=== PATIENT | female | born 1985 | race Caucasian/White ===

== ENCOUNTER 2021-04-25 21:02 | Inpatient (IN) | payer OTHER ==
[~2021-04-25] VITALS: Ht 160 cm; Wt 69.1 kg
--- NOTE | 2021-04-25 21:15 | NUR ---
BIBA FOR SYNCOPAL EVENT. PT STATES SHE HASN'T BEEN FEELING WELL FOR 1 WEEK. PT HAS REBOLLEDO. PT WAS WITH FRIEND GOING TO WHEN SHE HAS SYNCOPAL EVENT IN PARKING LOT. PER FRIEND PT HAD SEIZURE LIKE ACTIVITY. PT HAS NO HX OF SZ AND HAD NO LOSS OF BLADDER/BOWEL AND NO POSTICTAL STATE. PT A&0X4 AND ANSWERING QUESTIONS APPROPIATELY.
[2021-04-25] MEDS ORDERED: SODIUM CHLORIDE 0.9% 1,000ML IVBOLUS ONE (21:30)
[2021-04-25] MEDS ORDERED: KETOROLAC 30 MG/1 ML IVPush ONE (21:30)
[2021-04-25] MEDS ORDERED: ONDANSETRON 2MG/ML, 2ML IVPush ONE (21:30)
[2021-04-25] MEDS ORDERED: ONDANSETRON 2MG/ML, 2ML ONE (21:52)
[2021-04-25] MEDS ORDERED: KETOROLAC 30 MG/1 ML ONE (21:52)
[2021-04-25 21:58] LABS: BASOPHILS % (AUTO) 1 % (0-1); EOSINOPHILS % (AUTO) 1 % (1-7); LYMPHOCYTES % (AUTO) 7 % (22-44); MEAN CORPUSCULAR HEMOGLOBIN 27.1 pg (27.0-34.8); MEAN CORPUSCULAR HGB CONC 32.5 g/dL (32.4-35.8); MEAN PLATELET VOLUME 8.9 fL (7.4-10.4); MONOCYTES % (AUTO) 6 % (2-9); NEUTROPHILS % (AUTO) 86 % (42-75); PLATELET COUNT 447 x10^3/uL (130-400); RED BLOOD COUNT 4.48 x10^6/uL (3.82-5.3); RED CELL DISTRIBUTION WIDTH 17.5 % (9.6-15.2)
--- NOTE | 2021-04-25 23:30 | NUR ---
lab called, note about needing to redraw labs. lab head will page tech here in ER and ask.
[2021-04-26 00:28] LABS: ANION GAP 24 mmol/L (5-15); CHLORIDE 98 mmol/L (98-107)
[2021-04-26 00:29] LABS: CALCIUM 9.1 mg/dL (8.5-10.1)
[2021-04-26 00:30] LABS: ALBUMIN 3.1 g/dL (3.4-5.0)
[2021-04-26 00:53] LABS: ALANINE AMINOTRANSFERASE 183 U/L (12-78); ALBUMIN 3.1 g/dL (3.4-5.0); BILIRUBIN, DIRECT 0.3 mg/dL (0.1-0.2)
[2021-04-26] MEDS ORDERED: SODIUM CHLORIDE 0.9% 1,000ML IVBOLUS ONE (01:00)
[2021-04-26 01:03] LABS: ALKALINE PHOSPHATASE 147 U/L (45-117); BILIRUBIN,INDIRECT 0.2 mg/dL (0.0-2.0); BILIRUBIN,TOTAL 0.5 mg/dL (0.2-1.0); TOTAL PROTEIN 7.1 g/dL (6.4-8.2); TROPONIN I 0.026 ng/mL (0.000-0.045)
--- NOTE | 2021-04-26 01:07 | NUR ---
PT GIVEN BLANKET. UNDERSTANDS POC.
--- NOTE | 2021-04-26 02:07 | NUR ---
REPORT GIVEN TO SONIA BARRAZA
[2021-04-26 02:30] VITALS: BP 146/84
[2021-04-26] MEDS ORDERED: LABETALOL 5MG/ML, 20ML IVPush PRN (04:00)
[2021-04-26] MEDS ORDERED: HYDROmorphone 2 MG/ML, 1ML IVPush PRN (04:00)
[2021-04-26] MEDS ORDERED: ONDANSETRON 2MG/ML, 2ML IVPush PRN (04:00)
[2021-04-26] MEDS ORDERED: POLYETHYLENE GLYCOL 17 GM PACKET PO PRN (04:00)
[2021-04-26] MEDS: HEPARIN 5,000 UNITS/ML, 1ML SQ SCH ×3 (04:32→19:51)
[2021-04-26 07:08] VITALS: BP 135/86
[2021-04-26] MEDS ORDERED: PHARMACY MAY ADJ FOR RENAL FX MC PRN (07:30)
[2021-04-26 07:57] LABS: BASOPHILS % (AUTO) 1 % (0-1); EOSINOPHILS % (AUTO) 1 % (1-7); LYMPHOCYTES % (AUTO) 11 % (22-44); MEAN CORPUSCULAR HEMOGLOBIN 27.1 pg (27.0-34.8); MEAN CORPUSCULAR HGB CONC 32.2 g/dL (32.4-35.8); MEAN PLATELET VOLUME 8.8 fL (7.4-10.4); MONOCYTES % (AUTO) 7 % (2-9); NEUTROPHILS % (AUTO) 81 % (42-75); PLATELET COUNT 401 x10^3/uL (130-400)
[2021-04-26 08:02] LABS: ANION GAP 21 mmol/L (5-15); CALCIUM 8.5 mg/dL (8.5-10.1); CHLORIDE 102 mmol/L (98-107)
[2021-04-26] MEDS: SODIUM BICARBONATE 8.4% 150 MEQ in DEXTROSE 5% 1,000 ML IV SCH ×2 (08:39→23:44)
[2021-04-26] MEDS: BUTALB/APAP/CAFFEINE 50MG/325MG/40MG PO PRN ×3 (09:24→19:51)
[2021-04-26 09:53] LABS: MICROSCOPIC INDICATED
[2021-04-26] MEDS ORDERED: AMLODIPINE 5 MG TABLET PO ONE (11:30)
[2021-04-26 12:21] VITALS: BP 157/94
[2021-04-26 16:26] LABS: ANA SCREEN NEGATIVE (Negative)
[2021-04-26 18:33] VITALS: BP 141/88
[2021-04-26] MEDS: MELATONIN 5 MG TABLET PO PRN (22:38)
[2021-04-26 23:47] VITALS: BP 133/76
[2021-04-27] MEDS: HEPARIN 5,000 UNITS/ML, 1ML SQ SCH (03:21)
[2021-04-27 06:29] VITALS: BP 129/84
[2021-04-27 07:48] LABS: BASOPHILS % (AUTO) 1 % (0-1); EOSINOPHILS % (AUTO) 2 % (1-7); LYMPHOCYTES % (AUTO) 14 % (22-44); MEAN CORPUSCULAR HGB CONC 34.6 g/dL (32.4-35.8); MEAN PLATELET VOLUME 8.6 fL (7.4-10.4); MONOCYTES % (AUTO) 11 % (2-9); NEUTROPHILS % (AUTO) 73 % (42-75); PLATELET COUNT 381 x10^3/uL (130-400); RED BLOOD COUNT 3.65 x10^6/uL (3.82-5.3); RED CELL DISTRIBUTION WIDTH 17.7 % (9.6-15.2)
[2021-04-27 07:59] LABS: ANION GAP 14 mmol/L (5-15); CALCIUM 8.2 mg/dL (8.5-10.1); CHLORIDE 94 mmol/L (98-107)
[2021-04-27 08:00] LABS: INTERNATIONAL NORMALIZED RATIO 1.04 (0.93-1.1); PROTHROMBIN TIME 11.1 Seconds (9.6-11.5)
[2021-04-27 12:47] VITALS: BP 138/88
[2021-04-27] MEDS ORDERED: MIDAZOLAM 1 MG/ML, 5ML ONE (13:00)
[2021-04-27] MEDS ORDERED: FENTANYL PF 100 MCG/2ML ONE (13:00)
[2021-04-27] MEDS ORDERED: NALOXONE 1 MG/ML, 2ML ONE (13:01)
[2021-04-27] MEDS ORDERED: FLUMAZENIL 0.1 MG/1 ML, 5ML ONE (13:01)
[2021-04-27] MEDS: AMLODIPINE 5 MG TABLET PO SCH (17:30)
[2021-04-27] MEDS: LACTATED RINGERS 1,000 ML IV SCH (17:31)
[2021-04-27 20:21] VITALS: BP 137/88
[2021-04-27] MEDS: MELATONIN 5 MG TABLET PO PRN (20:34)
[2021-04-27] MEDS: BUTALB/APAP/CAFFEINE 50MG/325MG/40MG PO PRN (20:34)
[2021-04-28 03:29] VITALS: BP 139/87
[2021-04-28] MEDS: LACTATED RINGERS 1,000 ML IV SCH ×2 (03:35→17:23)
[2021-04-28 06:34] LABS: ALANINE AMINOTRANSFERASE 105 U/L (12-78); ALBUMIN 2.6 g/dL (3.4-5.0); ANION GAP 14 mmol/L (5-15); CALCIUM 8.7 mg/dL (8.5-10.1); CHLORIDE 95 mmol/L (98-107); CREATININE 8.54 mg/dL (0.55-1.02)
[2021-04-28 06:36] LABS: ALKALINE PHOSPHATASE 113 U/L (45-117); BILIRUBIN,TOTAL 0.6 mg/dL (0.2-1.0); TOTAL PROTEIN 6.1 g/dL (6.4-8.2)
[2021-04-28 06:47] LABS: BASOPHILS % (AUTO) 0 % (0-1); EOSINOPHILS % (AUTO) 0 % (1-7); LYMPHOCYTES % (AUTO) 4 % (22-44); MEAN CORPUSCULAR HEMOGLOBIN 27.5 pg (27.0-34.8); MEAN CORPUSCULAR HGB CONC 33.7 g/dL (32.4-35.8); MONOCYTES % (AUTO) 1 % (2-9); NEUTROPHILS % (AUTO) 95 % (42-75); PLATELET COUNT 383 x10^3/uL (130-400); RED BLOOD COUNT 3.87 x10^6/uL (3.82-5.3)
[2021-04-28 06:57] VITALS: BP 146/88
[2021-04-28] MEDS: AMLODIPINE 5 MG TABLET PO SCH (08:40)
[2021-04-28] MEDS: BUTALB/APAP/CAFFEINE 50MG/325MG/40MG PO PRN ×2 (08:51→16:48)
[2021-04-28 12:19] VITALS: BP 141/95
[2021-04-28] MEDS: HEPARIN 5,000 UNITS/ML, 1ML SQ SCH ×2 (12:47→21:15)
[2021-04-28 16:40] VITALS: BP 130/90
[2021-04-28 20:04] VITALS: BP 133/89
[2021-04-28] MEDS: MELATONIN 5 MG TABLET PO PRN (21:15)
[2021-04-29 03:31] VITALS: BP 123/82
[2021-04-29] MEDS: LACTATED RINGERS 1,000 ML IV SCH ×2 (03:31→16:00)
[2021-04-29 05:28] LABS: ALBUMIN 3.1 g/dL (3.4-5.0); ANION GAP 9 mmol/L (5-15); CALCIUM 8.8 mg/dL (8.5-10.1); CHLORIDE 104 mmol/L (98-107); CREATININE 5.59 mg/dL (0.55-1.02)
[2021-04-29] MEDS: HEPARIN 5,000 UNITS/ML, 1ML SQ SCH (05:38)
[2021-04-29 08:14] VITALS: BP 149/95
[2021-04-29] MEDS: AMLODIPINE 5 MG TABLET PO SCH (08:16)
[2021-04-29] MEDS: AMLODIPINE 10 MG TAB PO SCH (09:00)
[2021-04-29] MEDS: BUTALB/APAP/CAFFEINE 50MG/325MG/40MG PO PRN ×2 (13:42→21:56)
[2021-04-29 14:25] VITALS: BP 119/77
[2021-04-29 21:43] VITALS: BP 117/71
[2021-04-30 01:25] VITALS: BP 123/80
[2021-04-30] MEDS: LACTATED RINGERS 1,000 ML IV SCH ×2 (05:04→15:38)
[2021-04-30 05:45] LABS: ANION GAP 8 mmol/L (5-15); CALCIUM 8.9 mg/dL (8.5-10.1); CHLORIDE 106 mmol/L (98-107)
[2021-04-30 07:03] VITALS: BP 137/89
[2021-04-30] MEDS: AMLODIPINE 10 MG TAB PO SCH (07:50)
[2021-04-30] MEDS: BUTALB/APAP/CAFFEINE 50MG/325MG/40MG PO PRN (07:50)
[2021-04-30] MEDS ORDERED: NALOXONE 1 MG/ML, 2ML ONE (09:44)
[2021-04-30] MEDS ORDERED: FLUMAZENIL 0.1 MG/1 ML, 5ML ONE (09:44)
[2021-04-30] MEDS ORDERED: MIDAZOLAM 1 MG/ML, 5ML ONE (09:44)
[2021-04-30] MEDS ORDERED: FENTANYL PF 100 MCG/2ML ONE (09:44)
[2021-04-30 10:32] VITALS: BP 126/86
[2021-04-30 13:17] VITALS: BP 119/78
[2021-04-30 17:11] LABS: MICROSCOPIC INDICATED
[2021-04-30 17:18] LABS: CHLORIDE,URINE RANDOM 59 mmol/L; POTASSIUM,URINE RANDOM 33 mmol/L; SODIUM,URINE RANDOM 38 mmol/L
[2021-04-30 19:00] VITALS: BP 124/80
[2021-04-30 21:05] VITALS: BP 128/83
[2021-05-01 01:24] VITALS: BP 114/73
[2021-05-01] MEDS: LACTATED RINGERS 1,000 ML IV SCH (01:25)
[2021-05-01] MEDS: BUTALB/APAP/CAFFEINE 50MG/325MG/40MG PO PRN ×2 (02:16→12:58)
[2021-05-01] MEDS ORDERED: HYDROmorphone 2 MG/ML, 1ML ONE (03:01)
[2021-05-01] MEDS: HYDROmorphone 1 MG/ML, 1ML INJ IV PRN (03:03)
[2021-05-01 04:39] LABS: BASOPHILS % (AUTO) 0 % (0-1); EOSINOPHILS % (AUTO) 0 % (1-7); LYMPHOCYTES % (AUTO) 11 % (22-44); MEAN CORPUSCULAR HEMOGLOBIN 27.3 pg (27.0-34.8); MEAN CORPUSCULAR HGB CONC 32.4 g/dL (32.4-35.8); MEAN PLATELET VOLUME 8.9 fL (7.4-10.4); MONOCYTES % (AUTO) 7 % (2-9); NEUTROPHILS % (AUTO) 82 % (42-75); PLATELET COUNT 338 x10^3/uL (130-400); RED BLOOD COUNT 2.92 x10^6/uL (3.82-5.3); RED CELL DISTRIBUTION WIDTH 18.5 % (9.6-15.2)
[2021-05-01 04:46] LABS: ALBUMIN 2.8 g/dL (3.4-5.0); ANION GAP 6 mmol/L (5-15); CALCIUM 8.7 mg/dL (8.5-10.1); CHLORIDE 109 mmol/L (98-107)
[2021-05-01 04:51] LABS: % IRON SATURATION 45 % (20-55); ALANINE AMINOTRANSFERASE 75 U/L (12-78); ALKALINE PHOSPHATASE 98 U/L (45-117); BILIRUBIN,TOTAL 0.5 mg/dL (0.2-1.0); CREATININE 3.76 mg/dL (0.55-1.02); IRON LEVEL 115 mcg/dL (50-170); TOTAL IRON BINDING CAPACITY 256 mcg/dL (250-450); TOTAL PROTEIN 5.4 g/dL (6.4-8.2)
[2021-05-01 06:36] VITALS: BP 124/78
[2021-05-01] MEDS ORDERED: MAGNESIUM SULFATE PMX 2GM/50ML 50 ML IV ONE (07:00)
[2021-05-01] MEDS: AMLODIPINE 10 MG TAB PO SCH (07:43)
[2021-05-01 07:54] VITALS: BP 137/86
[2021-05-01 12:51] VITALS: BP 133/86
[2021-05-01 20:11] VITALS: BP 138/88
[2021-05-02 01:27] VITALS: BP 148/90
[2021-05-02] MEDS ORDERED: HYDROmorphone 2 MG/ML, 1ML ONE ×3 (01:29→10:10)
[2021-05-02] MEDS: HYDROmorphone 1 MG/ML, 1ML INJ IV PRN ×3 (01:31→10:14)
[2021-05-02 04:26] LABS: BASOPHILS % (AUTO) 0 % (0-1); EOSINOPHILS % (AUTO) 0 % (1-7); LYMPHOCYTES % (AUTO) 9 % (22-44); MEAN CORPUSCULAR HEMOGLOBIN 27.3 pg (27.0-34.8); MEAN CORPUSCULAR HGB CONC 32.5 g/dL (32.4-35.8); MONOCYTES % (AUTO) 7 % (2-9); NEUTROPHILS % (AUTO) 84 % (42-75); PLATELET COUNT 309 x10^3/uL (130-400); RED BLOOD COUNT 2.95 x10^6/uL (3.82-5.3); RED CELL DISTRIBUTION WIDTH 18.3 % (9.6-15.2)
[2021-05-02 04:34] LABS: ALBUMIN 2.4 g/dL (3.4-5.0); ANION GAP 6 mmol/L (5-15); CALCIUM 8.3 mg/dL (8.5-10.1); CHLORIDE 108 mmol/L (98-107)
[2021-05-02 04:38] LABS: ALANINE AMINOTRANSFERASE 72 U/L (12-78); ALKALINE PHOSPHATASE 94 U/L (45-117); BILIRUBIN,TOTAL 0.5 mg/dL (0.2-1.0); CREATININE 2.82 mg/dL (0.55-1.02); TOTAL PROTEIN 5.4 g/dL (6.4-8.2)
[2021-05-02 07:21] VITALS: BP 149/92
[2021-05-02] MEDS: BUTALB/APAP/CAFFEINE 50MG/325MG/40MG PO PRN (07:45)
[2021-05-02] MEDS: AMLODIPINE 10 MG TAB PO SCH (08:05)
[2021-05-02] MEDS ORDERED: AMLO-211 PO (11:36)
[2021-05-02 13:08] VITALS: BP 136/84
== END 2021-05-02 15:27 | disposition home or self-care (01) | DRG 683 ==
LOC: EDBD 21:02 → ED 23:01 → EDIP 04-26 01:07 → 5SO 04-26 02:32
PROVIDERS: ADMIT Internal Medicine; ATTEND Hospitalist
PROC: 02H633Z Insertion of Infusion Device into Right Atrium, Percutaneous Approach (ICD-10-PCS; principal; 2021-04-26)
PROC: B518ZZA Fluoroscopy of Superior Vena Cava, Guidance (ICD-10-PCS; 2021-04-26)
PROC: B543ZZA Ultrasonography of Right Jugular Veins, Guidance (ICD-10-PCS; 2021-04-26)
PROC: 5A1D70Z Performance of Urinary Filtration, Intermittent, Less than 6 Hours Per Day (ICD-10-PCS; 2021-04-26)
PROC: 5A1D70Z Performance of Urinary Filtration, Intermittent, Less than 6 Hours Per Day (ICD-10-PCS; 2021-04-27)
PROC: 5A1D70Z Performance of Urinary Filtration, Intermittent, Less than 6 Hours Per Day (ICD-10-PCS; 2021-04-28)
PROC: 5A1D70Z Performance of Urinary Filtration, Intermittent, Less than 6 Hours Per Day (ICD-10-PCS; 2021-04-29)
PROC: 0TB13ZX Excision of Left Kidney, Percutaneous Approach, Diagnostic (ICD-10-PCS; 2021-04-30)
DX: N17.0 Acute kidney failure with tubular necrosis (principal); E87.2 Acidosis; G93.40 Encephalopathy, unspecified; D64.9 Anemia, unspecified; E86.0 Dehydration; D72.829 Elevated white blood cell count, unspecified; F12.90 Cannabis use, unspecified, uncomplicated; G43.909 Migraine, unspecified, not intractable, without status migrainosus; G89.29 Other chronic pain; I15.1 Hypertension secondary to other renal disorders; T38.0X5A Adverse effect of glucocorticoids and synthetic analogues, initial encounter; M54.9 Dorsalgia, unspecified; R55 Syncope and collapse; R22.0 Localized swelling, mass and lump, head; L50.9 Urticaria, unspecified; R74.01 Elevation of levels of liver transaminase levels; Z90.49 Acquired absence of other specified parts of digestive tract
CPT/HCPCS: 36415; 36556; 50200; 70450; 71045; 76770; 76937; 77012; 80048; 80053; 80069; 80076; 81001; 82040; 82306; 82436; 82550; 82570; 82728; 83540; 83550; 83735; 83970; 84100; 84133; 84156; 84300; 84443; 84484; 84550; 84703; 85014; 85018; 85025; 85610; 86038; 86160; 86162; 86256; 86308; 86704; 86706; 87081; 87340; 87880; 88300; 90935; 93005; 93306; 93356; 96361; 96374; 96375; 99156; 99157; 99291; G0378; J1170; J1644; J1885; J2250; J2405; J2930; J3010; J7070; C1751; J1642; J2310; J3475; J7030; J7120; J7512